=== PATIENT | male | born 1970 | race African-American/Black ===

== ENCOUNTER 2017-04-20 08:22 | Emergency (ER) | payer SELFPAY ==
[~2017-04-20] VITALS: Ht 175.3 cm; Wt 76.8 kg
[2017-04-20] MEDS ORDERED: TRAMADOL HCL50 MG PO (09:23)
[2017-04-20] MEDS ORDERED: NAPROSYN500 MG PO (09:23)
[2017-04-20] MEDS ORDERED: PERIDEX1 ML MM (09:23)
[2017-04-20 09:28] VITALS: BP 164/97
== END 2017-04-20 09:34 | disposition home or self-care (01) ==
LOC: EME 08:22
PROC: 0C95XZZ Drainage of Upper Gingiva, External Approach (ICD-10-PCS; principal; 2017-04-20)
DX: K04.7 Periapical abscess without sinus (principal); K03.81 Cracked tooth; F12.10 Cannabis abuse, uncomplicated; Z87.891 Personal history of nicotine dependence
CPT/HCPCS: 99281; 99283